=== PATIENT | male | born 1955 | race Caucasian/White ===

== ENCOUNTER 2020-07-01 07:02 | Day surgery (SDC) | payer MEDICARE, OTHER ==
[~2020-07-01 07:02] MED LIST: Lactated Ringers 1,000 ML IV SCH; Lidocaine 1%/Sod Bicarbonate in NS 8.4% 1 ML Syringe IDERM PRN; Sodium Chloride 0.9% 10 ML Syringe FLUSH PRN
--- NOTE | 2020-07-01 07:26 | PCM.PREANE ---
Preanesthetic Assessment - Anesthesia/Transfusion/Family Hx Anesthesia History: Prior Anesthesia Without Reaction Family History of Anesthesia Reaction: No Transfusion History: Prior Transfusion Without Reaction - Review of Systems General: No Symptoms Pulmonary: No Symptoms Cardiovascular: No Symptoms Gastrointestinal: No Symptoms Neurological: No Symptoms Other: Reports: None - Physical Assessment NPO Status Date: 06/30/20 NPO Status Time: 22:30 ASA Class: 3 Mental Status: Alert & Oriented x3 Airway Class: Mallampati = 2 Dentition: Reports: Normal Dentition Thyro-Mental Finger Breadths: 3 Mouth Opening Finger Breadths: 3 ROM/Head Extension: Full Lungs: Clear to Auscultation, Normal Respiratory Effort Cardiovascular: Regular Rate, Regular Rhythm - Lab Values: Laboratory Last Values COVID-19 PCR Not detected (NOT DETECT) 06/27/20 10:00 - Allergies Allergies/Adverse Reactions: Allergies Allergy/AdvReac Type Severity Reaction Status Date / Time Penicillins Allergy Facial Verified 09/05/18 04:39 Swelling contrast dye Allergy Edema Uncoded 06/28/20 09:52 - Acknowledgements Anesthesia Type Planned: MAC Pt an Appropriate Candidate for the Planned Anesthesia: Yes Alternatives and Risks of Anesthesia Discussed w Pt/Guardian: Yes Pt/Guardian Understands and Agrees with Anesthesia Plan: Yes PreAnesthesia Questionnaire Cardiovascular History: Reports: Hypertension, [place] (per EKG on 11-02 denied per pt) Respiratory History: Reports: Pneumonia, Recurrent Gastrointestinal History: Reports: Gastritis Genitourinary History: Reports: BPH, Chronic Renal Insuffiency, Renal Calculus Endocrine/Metabolic History: Reports: Hyperparathyroidism, Obesity/BMI 30+ Hematologic History: Reports: Anemia, Iron Deficiency - Past Surgical History HEENT Surgical History: Reports: LASIK GI Surgical History: Reports: Bariatric Procedure, Colonoscopy, EGD, Hernia, Inguinal Female Surgical History: Reports: Cystoscopy, Lithotripsy/ESWL Male Surgical History: Reports: Kidney Stone Extraction Musculoskeletal Surgical History: Reports: Arthroscopic Knee, Other (See Below) - SUBSTANCE USE Smoking Status *Q: Never Smoker Recreational Drug Use History: No - HOME MEDS Home Medications: Home Meds Calcitriol 0.5 mg PO ASDIRECTED 06/28/20 [History] Potassium Citrate [Potassium Citrate ER] 15 meq PO DAILY 06/28/20 [History] Sildenafil [Viagra] 100 mg PO ASDIRECTED PRN 06/28/20 [History] Sodium Bicarbonate 2 tab PO TID 06/28/20 [History] amLODIPine Besylate [Norvasc] 10 mg PO DAILY 06/28/20 [History] - CURRENT (IN HOUSE) MEDS Current Meds: Current Medications Lactated Ringer's (Ringers, Lactated) 1,000 mls @ 125 mls/hr IV ASDIRECTED CATHY Stop: 07/01/20 23:00 Lidocaine/Sodium Bicarbonate (Buffered Lidocaine 1% In Ns 8.4%) 0.25 ml IDERM ONETIME PRN PRN Reason: Prior to IV Start Stop: 07/01/20 18:00 Sodium Chloride (Saline Flush) 10 ml FLUSH ASDIRECTED PRN PRN Reason: Keep Vein Open Stop: 07/01/20 18:00
[2020-07-01] MEDS ORDERED: Propofol 200 MG/20 ML SDV ONE ×3 (07:37→08:21)
[2020-07-01] MEDS ORDERED: Lidocaine 1% 4 ML ONE (07:37)
[2020-07-01] MEDS ORDERED: Sodium Chloride 0.9% 1,000 ML IV SCH (07:45)
--- NOTE | 2020-07-01 08:45 | PCM48HPAN ---
Post Anesthesia Note - EVALUATION WITHIN 48HRS OF ANESTHETIC Vital Signs in Normal Range: Yes Patient Participated in Evaluation: Yes Respiratory Function Stable: Yes Airway Patent: Yes Cardiovascular Function Stable: Yes Hydration Status Stable: Yes Pain Control Satisfactory: Yes Nausea and Vomiting Control Satisfactory: Yes Mental Status Recovered: Yes Vital Signs: Last Vital Signs Temp 36.7 C 07/01/20 07:05 Pulse 60 07/01/20 07:05 Resp 20 07/01/20 07:05 BP 173/89 H 07/01/20 07:05 Pulse Ox 98 07/01/20 07:05
--- NOTE | 2020-07-01 15:23 | PROC ---
DATE OF OPERATION: 07/01/2020 SURGEON: Belle Aaron MD PREOPERATIVE DIAGNOSIS: Need for colonoscopy. POSTOPERATIVE DIAGNOSES: 1. Colonic lipoma x1. 2. Colon polyps x3. 3. Hemorrhoids. OPERATION PERFORMED: Colonoscopy. ANESTHESIA: Monitored anesthesia care. COMPLICATIONS: None. INDICATIONS AND CONSENT: Mr. Montalvo is a 65-year-old male with end-stage renal failure. The patient is being considered for transplantation of the kidney. Due to this evaluation, he was recommended to undergo colonoscopy as he is due for one. This is a screening colonoscopy for him; therefore, he was seen in clinic and evaluated and was a candidate for colonoscopy. I saw the patient in the preop area today. He had no complaints and we discussed risks, benefits, and alternatives of colonoscopy. The patient agreed to proceed with the procedure. The patient had already signed the informed consent. DESCRIPTION OF PROCEDURE: The patient was taken to the procedure room, placed in left lateral decubitus position. Then, monitored anesthesia care was induced. Once this was done, we began with examination of perianal area and digital rectal exam. The perianal area was normal. Digital rectal exam revealed grade 2 internal hemorrhoids. There were no fissures and no other abnormalities. Scope was taken and placed into the rectum and advanced all the way to the cecum. The appendiceal orifice and ileocecal valve were photographed. The terminal ileum was also photographed. In the cecum, there was 1 flat polyp that was about 5 mm. This was removed completely with hot snare. The resection area was clipped to prevent any bleeding. One clip was applied. Then, we withdrew the scope, and in the ascending colon, there was a 1 cm colonic submucosal lipoma. Overlying mucosa appeared normal. The mucosa was biopsied to confirm that it was normal. Then, we continued to withdraw. There was another polyp in the transverse colon. This appeared flat as well and was removed with a snare. The polyp size was also about 5 mm. Then, we continued to withdraw. Again in the descending colon, there was about a 1 cm pedunculated polyp here which was also removed with hot snare. Removal of all polyps was complete. There was no bleeding. Then, we continued to withdraw the scope. There was no other polyps. On retroflexion, we were able to see grade 2 internal hemorrhoids. These were not irritated or bleeding. At this point, the scope was advanced back into the sigmoid colon. The air was suctioned out and the scope was withdrawn. EBL was minimal in this case. The patient was awoken from monitored anesthesia care and taken to recovery area after the procedure. No immediate complications. The patient to follow up in 2 weeks to discuss pathology results. GLORIA /[id number] ELIAS
== END 2020-07-01 09:22 | disposition home or self-care (01) ==
LOC: JD.SDS 07:02
PROVIDERS: ATTEND Surgery
DX: Z12.11 Encounter for screening for malignant neoplasm of colon (principal); D17.5 Benign lipomatous neoplasm of intra-abdominal organs; D12.0 Benign neoplasm of cecum; D12.3 Benign neoplasm of transverse colon; D12.4 Benign neoplasm of descending colon; K64.8 Other hemorrhoids; I12.0 Hypertensive chronic kidney disease with stage 5 chronic kidney disease or end stage renal disease; N18.6 End stage renal disease; E66.9 Obesity, unspecified; E21.3 Hyperparathyroidism, unspecified; G47.33 Obstructive sleep apnea (adult) (pediatric); D63.1 Anemia in chronic kidney disease; Z11.59 Encounter for screening for other viral diseases; Z88.0 Allergy status to penicillin; Z91.041 Radiographic dye allergy status; Z79.899 Other long term (current) drug therapy; Z68.34 Body mass index [BMI] 34.0-34.9, adult
CPT/HCPCS: 45385; J2001; J2704; J7030; U0002; 00812; 88305